=== PATIENT | female | born 1975 | race Caucasian/White ===

== ENCOUNTER 2021-10-02 08:24 | Emergency (ER) | payer BC ==
[2021-10-02] MEDS ORDERED: Ondansetron 4 MG/2 ML SDV IVPUSH ONE (09:04)
[2021-10-02] MEDS ORDERED: Dextrose 5%-Lactated Ringers 1,000 ML IV STA (09:04)
[2021-10-02 09:24] LABS: CARBON DIOXIDE,CO2 25.3 mmol/L (21.0-32.0); POTASSIUM,K 3.7 mmol/L (3.5-5.1)
[2021-10-02 11:26] VITALS: BP 144/81; PULSE 71
== END 2021-10-02 11:25 | disposition home or self-care (01) ==
LOC: MW.ED 08:24
DX: R10.9 Unspecified abdominal pain (principal); R11.2 Nausea with vomiting, unspecified; R19.7 Diarrhea, unspecified; Z20.822 Contact with and (suspected) exposure to COVID-19; Z79.899 Other long term (current) drug therapy
CPT/HCPCS: 36415; 80053; 81003; 81025; 83690; 85025; 87635; 96361; 96374; 99284; J2405; J7121; 99283; U0002

== ENCOUNTER 2024-05-03 06:26 | Day surgery (SDC) | payer BC ==
[2024-05-03] MEDS ORDERED: Lidocaine 1% 20 ML MDV ONE (07:22)
[2024-05-03] MEDS ORDERED: Bupivacaine 0.5% 30 ML SDV ONE (07:22)
[2024-05-03] MEDS ORDERED: Naloxone 0.4 MG/ML SDV IVPUSH PRN (08:09)
[2024-05-03] MEDS ORDERED: HYDROmorphone 1 MG/ML Syringe IVPUSH PRN (08:09)
[2024-05-03] MEDS ORDERED: Albuterol 0.083% 2.5 MG/3 ML Neb Soln NEB PRN (08:09)
[2024-05-03] MEDS ORDERED: Metoclopramide 10 MG/2 ML SDV IVPUSH PRN (08:09)
[2024-05-03] MEDS ORDERED: Ondansetron 4 MG/2 ML SDV IVPUSH PRN (08:09)
[2024-05-03] MEDS ORDERED: Phenylephrine HCl In 0.9% NaCl 1 MG/10 ML Syringe IVPUSH PRN (08:09)
[2024-05-03] MEDS ORDERED: fentaNYL 50 MCG/ML SDV IVPUSH PRN (08:09)
[2024-05-03] MEDS ORDERED: Morphine 2 MG/ML SYRINGE IVPUSH PRN (08:09)
[2024-05-03 09:31] VITALS: BP 108/76; PULSE 59
== END 2024-05-03 09:05 | disposition home or self-care (01) ==
LOC: MW.SDS 06:26
PROVIDERS: ATTEND Surgery
DX: L72.11 Pilar cyst (principal); Z88.8 Allergy status to other drugs, medicaments and biological substances; Z79.899 Other long term (current) drug therapy
CPT/HCPCS: 11440; J0665; J3490